=== PATIENT | male | born 1950 | race Caucasian/White ===

== ENCOUNTER 2018-02-07 07:29 | Day surgery (SDC) | payer OTHER, BC ==
--- OUTSIDE RECORDS SUMMARY | 2018-02-07 07:32 | XMS REPORT ---
:1950 Author Organization eClinicalWorks Care Team Providers Name Role Phone Rashel Cedeño Provider Role Unavailable Allergies No Known Allergies Problems Problem Type Condition Code Onset Dates Condition Status Problem Benign essential hypertension I10 Active Problem Hyperlipidemia, mixed E78.2 Active Problem Restless leg syndrome G25.81 Active Assessment Anxiety with depression F41.8 Active Problem Anxiety with depression F41.8 Active Problem Seborrheic dermatitis of scalp L21.9 Active Medications Medication Code Code Instructions Start End Status Dosage System Date Date Fluoxetine HCl [facility] 10040027292 20 MG Orally Inactive 1 capsule Once a day in the morning Results No Known Results Summary Purpose eClinicalWorks Submission
--- OUTSIDE RECORDS SUMMARY | 2018-02-07 07:32 | XMS REPORT ---
:1950 Author Organization e[employer]Works Care Team Providers Name Role Phone Rashel Cedeño Provider Role Unavailable Allergies No Known Allergies Problems Problem Type Condition Code Onset Dates Condition Status Assessment Seborrheic dermatitis of scalp L21.9 Active Assessment Hyperlipidemia, mixed E78.2 Active Assessment Restless leg syndrome G25.81 Active Problem Benign essential hypertension I10 Active Problem Hyperlipidemia, mixed E78.2 Active Problem Restless leg syndrome G25.81 Active Assessment Benign essential hypertension I10 Active Assessment Anxiety with depression F41.8 Active Problem Anxiety with depression F41.8 Active Problem Seborrheic dermatitis of scalp L21.9 Active Medications Medication Code Code Instructions Start End Status Dosage System Date Date 8 Hour [facility] [address]-16 Active not defined Arthritis Pain Reliever Requip [facility] 54806342628 1 MG Orally Active 1 tablet Once a day at bedtime Clonazepam [facility] 57881970517 1 MG Orally Active 1 tablet Once a day at bedtime Lovastatin [facility] 60870750042 40 MG Orally March Active 1 tablet with Once a day 28, a meal 2018 Aspirin 81 [facility] 59629746372 81 MG Orally Active 1 tablet Once a day Fluoxetine HCl [facility] 49544778427 20 MG Orally Active 1 capsule in Once a day the morning Amlodipine [facility] 05902674810 5 MG Orally Active 1 tablet Besylate Once a day Elocon [facility] 63180763906 0.1 % Active 1 application Externally to affected Once a day area Allergy Relief [facility] [address]-56 Active not defined Fish Oil [facility] [address]-67 Active not defined Ketoconazole [facility] 68062672120 2 % Externally Sept Active 1 application Once a day 24, to scalp as 2018 needed Vitamin D3 [facility] 0[address]36[address] Active not defined Magnesium Oxide [facility] [address]-44 Active not defined Multivitamin [facility] [address]53-[address] Active not defined Men 50+ Results No Known Results Summary Purpose eClinicalWorks Submission
--- OUTSIDE RECORDS SUMMARY | 2018-02-07 07:32 | XMS REPORT ---
:1950 Author Organization eClinicalWorks Care Team Providers Name Role Phone Rashel Cedeño Provider Role Unavailable Allergies, Adverse Reactions, Alerts Substance Reaction Event Type Wellbutrin Seizure Drug Allergy Morphine Sulfate Swelling/sick Drug Allergy Problems Problem Type Condition Code Onset Dates Condition Status Problem Benign essential hypertension I10 Active Problem Hyperlipidemia, mixed E78.2 Active Problem Restless leg syndrome G25.81 Active Assessment Welcome to Medicare preventive Z00.00 Active visit Assessment Former tobacco use Z87.891 Active Problem Anxiety with depression F41.8 Active Problem Seborrheic dermatitis of scalp L21.9 Active Medications Medication Code Code Instructions Start End Status Dosage System Date Date Magnesium Oxide [facility] [address]-65 Active not defined Vitamin D3 [facility] [address] Active not defined Lovastatin [facility] 01416091874 40 MG Orally November Active 1 tablet with Once a day 28, a meal 2017 Ketoconazole [facility] 19378735758 2 % Externally Sept Active 1 application Once a day 24, to scalp as 2018 needed 8 Hour [facility] [address]-22 Active not defined Arthritis Pain Reliever Multivitamin [facility] 412[address] Active not defined Men 50+ Elocon [facility] 98906710856 0.1 % Active 1 application Externally to affected Once a day area Amlodipine [facility] 91565423901 5 MG Orally Active 1 tablet Besylate Once a day Fish Oil [facility] [address]-30 Active not defined Aspirin 81 [facility] 37311134977 81 MG Orally Active 1 tablet Once a day Allergy Relief [facility] [address]-16 Active not defined Results No Known Results Summary Purpose eClinicalWorks Submission
--- OUTSIDE RECORDS SUMMARY | 2018-02-07 07:32 | XMS REPORT ---
:1950 Author Organization eClinicalWorks Care Team Providers Name Role Phone Ac Bocanegra Provider Role Unavailable Allergies, Adverse Reactions, Alerts Substance Reaction Event Type Wellbutrin Seizure Drug Allergy Morphine Sulfate Swelling/sick Drug Allergy Problems Problem Type Condition Code Onset Dates Condition Status Problem Benign essential hypertension I10 Active Problem Hyperlipidemia, mixed E78.2 Active Problem Restless leg syndrome G25.81 Active Assessment Encounter for screening colonoscopy Z12.11 Active Problem Anxiety with depression F41.8 Active Problem Seborrheic dermatitis of scalp L21.9 Active Medications Medication Code Code Instructions Start End Status Dosage System Date Date Allergy Relief [facility] [address]-04 Active not defined Multivitamin [facility] 33123[address]408 Active not defined Men 50+ Amlodipine [facility] 24695760953 5 MG Orally Active 1 tablet Besylate Once a day Lovastatin [facility] 84297571199 40 MG Orally November Active 1 tablet with Once a day 28, a meal [address] [facility] [address]-17 Active not defined Arthritis Pain Reliever Vitamin D3 [facility] 92[address] Active not defined Fish Oil [facility] [address]-99 Active not defined Elocon [facility] 41712547038 0.1 % Active 1 application Externally to affected Once a day area Ketoconazole [facility] 45904343429 2 % Externally Sept Active 1 application Once a day 24, to scalp as 2018 needed Aspirin [address] [facility] 65887267360 81 MG Orally Active 1 tablet Once a day Magnesium Oxide [facility] [address]-99 Active not defined Results No Known Results Summary Purpose eClinicalWorks Submission
[2018-02-07] MEDS ORDERED: Ringers Lactate 1,000 ML IV ONE (07:40)
[2018-02-07] MEDS ORDERED: PROPOFOL 200 MG/20 ML VIAL IV ONE (08:31)
--- NOTE | 2018-02-07 09:05 | ENDO RPT ---
[address], [address] COLONOSCOPY PROCEDURE REPORT EXAM DATE: 02/07/2018 PATIENT NAME: Brain Segura MR #: [id number] BIRTHDATE: 1950 ATTENDING: Ac Bocanegra DR STATUS: outpatient [employer] COORDINATOR: Antoinette Sanford, Jolynn Washburn RN, and Jareth Sanford INDICATIONS: The patient is a 67 yr old Male here for a colonoscopy due to colon cancer screening PROCEDURE PERFORMED: Colonoscopy with biopsy - cold polypectomy MEDICATIONS: Per Anesthesia. ESTIMATED BLOOD LOSS: None CONSENT: The patient understands the risks and benefits of the procedure and understands that these risks include, but are not limited to: sedation, allergic reaction, infection, perforation and/or bleeding. Alternative means of evaluation and treatment include, among others: physical exam, x-rays, and/or surgical intervention. The patient elects to proceed with this endoscopic procedure. DESCRIPTION OF PROCEDURE: During intra-op preparation period all mechanical medical equipment was checked for proper function. Hand hygiene and appropriate measures for infection prevention was taken. Procedure, possible complications, alternatives including, but not limited to possibility of bleeding, perforation, tear, infection, sepsis, need for surgery, need for blood transfusion, were explained to the patient. After the risks, benefits and alternatives of the procedure were thoroughly explained, Informed consent was verified, confirmed and timeout was successfully executed by the treatment team. The patient was placed in the left lateral position. A digital rectal exam was performed and revealed no abnormalities of the rectum and A digital rectal exam was performed and revealed an enlarged prostate. After appropriate level of anesthesia, the scope was passed. The [id number] ([id number]) endoscope was introduced through the anus and advanced to the cecum, which was identified by both the appendix and ileocecal valve. The quality of the prep was fair. The instrument was then slowly withdrawn as the colon was fully examined. Scope withdrawal time was 10 minutes. COLON FINDINGS: A small smooth and polypoid shaped pedunculated polyp with a friable surface was found at the splenic flexure. A biopsy was performed using cold forceps. Sample was obtained and sent to histology. Retroflexed views revealed no abnormalities. The scope was then completely withdrawn from the patient and the procedure terminated. ADVERSE EVENTS: There were no complications. IMPRESSIONS: Small pedunculated polyp was found at the splenic flexure; biopsy was performed using cold forceps RECOMMENDATIONS: 1. follow-up: office 2 week(s) 2. await biopsy results 3. avoid NSAIDS for 2 weeks 4. fiber rich diet RECALL: for Colonoscopy, pending biopsy results. Ac Bocanegra DR eSigned: Ac Bocanegra DR 02/07/2018 9:05 AM cc: CPT CODES: ICD9 CODES: PATIENT NAME: Brain Segura MR#: [id number]
== END 2018-02-07 09:36 | disposition home health service (06) ==
LOC: OR 07:29
PROVIDERS: ATTEND Surgery
PROC: 0DBL8ZX Excision of Transverse Colon, Via Natural or Artificial Opening Endoscopic, Diagnostic (ICD-10-PCS; principal; 2018-02-07 08:30)
DX: Z12.11 Encounter for screening for malignant neoplasm of colon (principal); D12.3 Benign neoplasm of transverse colon; I10 Essential (primary) hypertension; G47.33 Obstructive sleep apnea (adult) (pediatric); E78.2 Mixed hyperlipidemia; G25.81 Restless legs syndrome; F41.8 Other specified anxiety disorders; F17.290 Nicotine dependence, other tobacco product, uncomplicated; Z79.82 Long term (current) use of aspirin; Z82.3 Family history of stroke; Z82.49 Family history of ischemic heart disease and other diseases of the circulatory system; Z80.0 Family history of malignant neoplasm of digestive organs; Z83.3 Family history of diabetes mellitus
CPT/HCPCS: 88305